=== PATIENT | female | born 1970 | race American Indian/Alaskan Native ===

== ENCOUNTER 2018-07-08 06:03 | Observation (INO) | payer BC ==
[2018-07-05 12:18] LABS: Hematocrit 35.3 % (30.3-42.9); Hemoglobin 11.7 gm/dl (10.1-14.3); Mean Corpuscular HGB Conc 33 % (30-34); Mean Corpuscular Hemoglobin 25 pg (28-32); Mean Corpuscular Volume 77 fl (79-97); Platelet Count 226 K/mm3 (140-440); Red Cell Distribution Width 14.4 % (13.2-15.2)
[2018-07-05 12:29] LABS: BUN/Creatinine Ratio 16; Blood Urea Nitrogen 13 mg/dL (7-17); Calcium 8.9 mg/dL (8.4-10.2); Hemolysis Index 7
[2018-07-05 13:21] LABS: Anisocytosis 1+; Basophils % (Manual) 0 % (0.0-1.8); Eosinophils % (Manual) 0 % (0.0-4.3); Hypochromasia 1+; Total Cells Counted 100
--- NOTE | 2018-07-05 13:22 | Anesthesia Consultation ---
Anesthesia Consult and Med Hx Date of service: 07/05/18 - Airway Anesthetic Teeth Evaluation: Good ROM Head & Neck: Adequate Mental/Hyoid Distance: Adequate Mallampati Class: Class I Intubation Access Assessment: Good - Pulmonary Exam CTA: Yes - Cardiac Exam Cardiac Exam: RRR - Pre-Operative Health Status ASA Pre-Surgery Classification: ASA2 Proposed Anesthetic Plan: General - Pulmonary Hx Smoking: Yes - Central Nervous System Hx Psychiatric Problems: Yes - Other Systems Hx Alcohol Use: Yes (Rarely) Hx Substance Use: Yes (Marijuana daily) Hx Cancer: No
[2018-07-05 13:23] LABS: Platelet Estimate Cons
--- NOTE | 2018-07-05 13:36 | XRay Report ---
ROUTINE CHEST, TWO VIEWS: HISTORY: Smoker, preop. The trachea, heart, mediastinal contour, lung riggins and bony thorax are unremarkable. IMPRESSION: Unremarkable chest x-ray.
--- NOTE | 2018-07-07 22:33 | History and Physical Report ---
History of Present Illness Date of examination: 07/05/18 History of present illness: Patient has been reassessed/reevaluated. H&P has been reviewed. No interval changes. This is a 47 years old female with leiomyomas who presents with complaints of menorrhagia and dysmenorrhea, but denies abnormal pap smears, metrorrhagia, dyspareunia, post-coital bleeding, abnormal periods, pelvic pain, abnormal vaginal discharge, breast mass or lumps, depression, anxiety, urinary symptoms, chest pain, palpitations, shortness of breath, leg swelling, back pain, abdominal pain, headaches and bowel problems. The patient notes that she is sexually active and uses contraception. The patient reports that she has regular menses. The patient notes that she performs self breast exams has no breast concerns. Patient is due for Mammogram and Pap Smear. The patient also presents with menstrual disorder. The symptoms began 3 months ago. She complains of heavy bleeding, dysmenorrhea and cramping, but denies irregular menses, mid-cycle spotting, lack of menses, clotting, history of ovarian cysts, history of thyroid disease, history of PCOS, history of bleeding disorder, lightheadedness and fatigue. Patient reports that for pain she uses ibuprofen. Patient Profile: 47 Years Old Female LMP: 07/01/2018 Height: 63 inches (160.02 cm) Weight: 145 pounds BMI: 25.68 LMP (date): 07/01/2018 Current Method of Contraception: BTL Date of Last Mammogram: 06/29/2018 Date of Last Pap Smear: 05/25/2018 Past History : 3 Term Births: 0 Premature Births: 1 Living Children: 1 Para: 1 Mult. Births: 0 Prev : 1 Aborta: 2 Elect. Ab: 2 Spont. 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 of genital herpes: no Hx of STD: gonorrhea Past Medical History: PTSD Back pain Migraine Past Surgical History: (1992) Left toe Carpal Tunnel Release Tubal Ligation (1993) D&C: Family History Summary: Has Family History Breast Cancer - Entered On: 05/25/2018 Has No Family History of Colon Cancer - Entered On: 05/25/2018 Has Family History of Ovarian Cancer - Entered On: 05/25/2018 Social History: Marital Status: Children: 1 Occupation: Disabled Smoking History: Patient currently smokes every day. Risk Factors: Smoked Tobacco Use: Current every day smoker Smokeless Tobacco Use: Never Passive smoke exposure: no Drug use: yes Alcohol use: yes Exercise: no Seatbelt use: 100 % Mammogram History: Date of Last Mammogram: 06/29/2018 PAP Smear History: Date of Last PAP Smear: 05/25/2018 Review of Systems General Complains of fatigue. Denies fever, chills, sweats, anorexia, weakness, malaise, weight loss and sleep disorder. Complains of menorrhagia, pelvic pain and painful periods. Denies vaginal discharge, incontinence, dysuria, hematuria, amenorrhea, abnormal vaginal bleeding, genital sores, decreased libido, painful sex, urinary urgency, hot flashes, vaginal dryness, vaginal itching and vaginal odor. CV Denies chest pains, palpitations, syncope, dyspnea on exertion, orthopnea, PND and peripheral edema. Resp Denies cough, dyspnea at rest, excessive sputum, hemoptysis, wheezing and pleurisy. GI Denies nausea, vomiting, diarrhea, constipation, change in bowel habits, abdominal pain, melena, hematochezia, jaundice, gas/bloating, indigestion/ heartburn, dysphagia and odynophagia. Breast Denies left breast lump, right breast lump, nipple discharge, bloody discharge from nipple, breast pain, abnormal mammogram and breast enlargement. Psych Denies depression, anxiety, irritability and mood swings. Past History Past Medical History: other (See HPI) Past Surgical History: , Other Social history: other Family history: other Medications and Allergies Allergies Allergy/AdvReac Type Severity Reaction Status Date / Time latex AdvReac Skin Verified 06/29/18 14:10 irritation all antibiotics Allergy Bacterial Uncoded 06/29/18 14:10 infection Home Medications Medication Instructions Recorded Confirmed Last Taken Type Biotin 1 mg PO DAILY 06/29/18 06/29/18 Unknown History Divalproex ER [DepaKOTE ER] 1,500 mg PO HS 06/29/18 06/29/18 Unknown History Ergocalciferol(Vitamin D2)(Nf) 1,000 unit PO DAILY 06/29/18 06/29/18 Unknown History [Vitamin D (Nf)] Quetiapine Fumarate [Seroquel] 100 mg PO HS 06/29/18 06/29/18 Unknown History Active Meds: Active Medications Celecoxib (Celebrex) 200 mg PO PREOP NR Stop: 07/08/18 23:59 Gabapentin (Neurontin) 300 mg PO PREOP NR Stop: 07/08/18 23:59 Lactated Ringer's (Lactated Ringers) 1,000 mls @ 100 mls/hr IV DIRECT JESUS Midazolam HCl (Versed) 2 mg IV PREOP NR Stop: 07/08/18 23:59 Exam - Physical Exam Narrative exam: HEENT: normocephalic, no lesions or deformities Neck/Thyroid: supple, thyroid normal Skin no significant abnormal lesions or rashes Chest: respiratory effort normal, clear to auscultation Breasts: skin/areolae normal, no masses, no nipple discharge, no erythema/warmth /tenderness, and axillae normal. 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 No evidence of cystocele or rectocele. Cervix: No lesions; no cervical motion tenderness Uterus: enlarged uterus 8 - 10 weeks size Adnexae: no masses or tenderness Rectovaginal: exam defered - Constitutional Vitals: Temp Pulse Resp BP Pulse Ox 98.2 F 68 18 124/72 07/05/18 11:55 07/05/18 11:55 07/05/18 11:55 07/05/18 11:55 Results - Labs CBC & Chem 7: 07/05/18 11:59 07/05/18 11:59 Assessment and Plan - Patient Problems (1) Intramural leiomyoma of uterus Current Visit: No Status: Acute Plan to address problem: Diagnosis explained to patient . Questions answered. Discussed with patient various medical, surgical and radiological therapies common for treatment including myomectomy hysterectomy and uterine artery embolization Patient desires definitive treatment Patient desires hysterectomy Discussed risks and benefits of laparotomy, laparoscopy, vaginal and robotic assisted approaches for hysterectomies Patient desires robotic assisted total hysterectomy. Patient desires robotic assisted total hysterectomy. Consent reviewed and signed . The risks and alternatives for this surgery were reviewed with the patient. Discuss the risks of the surgery including infection, bleeding possibly heavy enough to require a blood transfusion, possible damage to bowel, bladder or ureter. Patient understand that this surgery with make her sterile.Patient understands if her ovaries are removed she will become menopausal. Also if unable to complete robitcally a laparotomy may perform (2) Menorrhagia Current Visit: No Status: Acute Qualifiers: Menorrahagia type: with regular cycle Qualified Code(s): N92.0 - Excessive and frequent menstruation with regular cycle Plan to address problem: Secondary to #1 (3) Dysmenorrhea Current Visit: No Status: Acute Plan to address problem: Secondary to#1 (4) Post traumatic stress disorder Current Visit: Yes Status: Chronic (5) Smoker Current Visit: Yes Status: Chronic (6) Migraine Current Visit: Yes Status: Chronic Qualifiers: Migraine type: unspecified
[~2018-07-08 06:03] MED LIST: LACTATED RINGERS 1,000 ML IV SCH; NEURONTIN PO NR; VERSED IV NR
[2018-07-08] MEDS ORDERED: MARCAINE 0.5% INFILTRATI ONE (07:25)
[2018-07-08] MEDS ORDERED: SUBLIMAZE ONE ×2 (07:25→07:49)
[2018-07-08] MEDS ORDERED: DECADRON ONE ×2 (07:26→07:45)
[2018-07-08] MEDS ORDERED: BLOXIVERZ ONE (07:45)
[2018-07-08] MEDS ORDERED: QUELICIN ONE (07:45)
[2018-07-08] MEDS ORDERED: ROBINUL ONE (07:45)
[2018-07-08] MEDS ORDERED: XYLOCAINE MPF 2% ONE (07:45)
[2018-07-08] MEDS ORDERED: ZOFRAN ONE (07:45)
[2018-07-08] MEDS ORDERED: ZEMURON IV ONE (07:45)
[2018-07-08] MEDS ORDERED: DIPRIVAN 10 MG/ML IV ONE (07:49)
[2018-07-08] MEDS ORDERED: NEOSPORIN GU IR ONE (08:17)
[2018-07-08] MEDS ORDERED: ANCEF/STERILE WATER 2 GM/20 ML IV NR (09:00)
[2018-07-08] MEDS ORDERED: NACL 0.9% IR ONE ×2 (09:56)
--- NOTE | 2018-07-08 10:31 | Anesthesia Day of Surgery ---
Anesthesia Day of Surgery - Day of Surgery Patient Examined: Yes Patient H&P Reviewed: Yes Patient is NPO: Yes
[2018-07-08] MEDS ORDERED: TORADOL ONE (10:44)
--- NOTE | 2018-07-08 10:57 | Operative Report ---
Operative Report Operative Report: Date of procedure: 07/08/2018 Pre-operative diagnosis: Symptomatic myomatous Post-operative diagnosis: Same plus pelvic adhesive disease Procedure name(s):Robotic Assisted Total Hysterectomy with bilateral salpingectomy with lysis of adhesions Surgeon: Wayne Snyder MD Steel Wheel Engraver: Yuliya Grady certified industrial hygienist Anesthesia: General EBL: 50 mL Complications: None Findings: Uterus with multiple small myomas approximately 8-10 weeks in size. Patient with omental adhesions to the anterior abdominal wall and thick adhesions between anterior abdominal wall and anterior uterus Specimen(s): Uterus and bilateral fallopian tubes Procedure: Patient was brought to the operating room where general anesthesia was induced without difficulty. Patient was placed in the dorsal lithotomy position. Prepped and draped in the usual sterile manner for robotic procedure. Dominguez catheter was placed without difficulty. Speculum was placed in the vagina. A large V-Care Uterine manipulator was placed without difficulty. Attention was now switched to the patient's abdomen. A vertical supra-umbilicus incision was made with a scalpel. A 10-12 trocar was placed in this incision under direct visualization. Intra-abdominal placement was verified with no evidence of internal organ damage. The patient pelvic findings were noted as above. It was determined that the patient was a candidate for robotic procedure. On both sides the umbilical incision at about 8 cm, incisions were made for robotic trocar. Each robotic trocar was placed under direct visualization with no evidence of internal organ damage. One assistant farm operations manager port were then placed. One 5mm trocar was placed 2 fingerbreadths above the right iliac crest. At this time the patient was placed in extreme Trendelenburg. The da Gordon robot was then docked on the patient's left side. The trocars connected to the robot appropriately. At this time I took my place under the robotic operating reyes. Starting on the patient 's right side the mesosalpinx of the tube were cauterized for mild distal to proximal tube. Bipolar cautery was placed across the proximal portion of the fallopian tube. This area was cauterized and cut the fallopian tube was then removed from the large care team assistant port. Utero-ovarian complex was cauterized and cut. This was followed by cauterizing and cutting the right fallopian tube and right round ligament. The broad ligament was then opened. The bladder flap was formed anteriorly. The posterior broad ligament was then excised. The uterine vessels were skeletonized. The ureter was clearly seen out of the operative field. The bladder was pushed away from the anterior uterus. Attention was then switched to the patient's left side. The same procedure was repeated on the left side with perform the salpingectomy followed by isolating the uterine vessels cauterized and cutting and completing the bladder flap from the left side. At this time the uterus was appearing very cyanotic. After inspecting the bladder flap insured no evidence of bladder injury, the colpotomy was then started. Incision started at 6:00 until the V-Care could be seen. This incision was extended from 6:00 to 9:00. Then from 6:00 to 3:00. Then from 9:00 to 12:00. This incision was extended from 3:00 to 12:00. At this time colpotomy was complete with no evidence of adjacent organ damage. The assistant farm operations manager remove the uterus from through the colpotomy site. The vaginal cuff was irrigated and cauterized and found to be hemostatic. The cuff was closed with roboticly using 0 V- Lock suture. This closure was hemostatic after irrigation and Bovie. All pedicles were inspected and found to be hemostatic. The ureters were identified bilaterally and found to be functioning normal. The patient had clear urine in the Dominguez catheter with no evidence of mixture with blood. Willian was placed on the cuff and pedicles for postoperative hemostasis . All instruments were then removed. The large trocar sites were closed in layers and 4-0 Vicryl. The smaller incisions were closed subcuticularly with 4-0 Vicryl. The patient tolerated procedure well. She was awakened in the operating room and accompanied to the recovery room in good condition.
[2018-07-08] MEDS ORDERED: DEMEROL IV PRN (11:00)
[2018-07-08] MEDS ORDERED: TORADOL IV PRN (11:00)
[2018-07-08] MEDS ORDERED: ZOFRAN IV PRN (11:00)
[2018-07-08] MEDS ORDERED: DILAUDID IV PRN (11:00)
[2018-07-08] MEDS ORDERED: NORCO 5/325 PO PRN (12:37)
[2018-07-08] MEDS ORDERED: HABITROL TD SCH (14:00)
[2018-07-08] MEDS: D5LR 1,000 ML IV SCH ×2 (15:41→23:59)
[2018-07-08] MEDS: TORADOL IV SCH ×2 (16:54→21:52)
--- NOTE | 2018-07-08 16:59 | Post Anesthesia Evaluation ---
- Post Anesthesia Evaluation Patient Participated: Yes Airway Patent: Yes Stable Respiratory Function: Yes Nausea/Vomiting: No Temp > 96.8F: Yes Pain Manageable: Yes Adequeate Hydration: Yes Anesthesia Complications: No
[2018-07-08] MEDS: ANCEF/NS 1 GM/50 ML 1 GM/50 ML BAG IV SCH ×2 (17:39→23:58)
--- NOTE | 2018-07-08 18:01 | Event Note ---
Date: 07/08/18 Day of surgery. Discuss operative findings with patient and questions answered. Patient without fever. Will ambulate in halls this evening. Good urine output. We will continue routine postoperative care.
[2018-07-08] MEDS ORDERED: DIFLUCAN PO ONE (18:03)
[2018-07-08] MEDS ORDERED: COLACE PO SCH (22:00)
[2018-07-09] MEDS: TORADOL IV SCH (03:55)
[2018-07-09 04:29] LABS: Hematocrit 32.7 % (30.3-42.9); Hemoglobin 10.8 gm/dl (10.1-14.3)
--- NOTE | 2018-07-09 08:59 | Short Stay Summary ---
Short Stay Documentation Date of service: 07/09/18 - History H&P: dictated Past Medical History: other (See HPI) Past Surgical History: , Other Social history: other - Allergies and Medications Current Medications: Allergies latex Adverse Reaction (Verified 06/29/18 14:10) Skin irritation Home Medications Medication Instructions Recorded Confirmed Last Taken Type Biotin 1 mg PO DAILY 06/29/18 07/08/18 07/07/18 20:30 History Divalproex ER [DepaKOTE ER] 1,500 mg PO 06/29/18 07/08/18 07/07/18 20:30 History Ergocalciferol(Vitamin D2)(Nf) 1,000 unit PO DAILY 06/29/18 07/08/18 07/07/18 20 :30 History [Vitamin D (Nf)] Quetiapine Fumarate [Seroquel] 100 mg PO 06/29/18 07/08/18 07/07/18 20:30 History Ibuprofen [Motrin 800 MG tab] 800 mg PO Q6H PRN #30 tablet 07/08/18 Unknown Rx oxyCODONE /ACETAMINOPHEN [Percocet 1 - 2 tab PO Q4H PRN #30 tablet 07/08/18 Unknown Rx 5/325 mg] Active Medications Acetaminophen/Hydrocodone Bitart ([place] 5/325) 2 each PO Q4H PRN PRN Reason: Pain, Moderate (4-6) Last Admin: 07/08/18 17:41 Dose: 2 each Divalproex Sodium (Depakote Er) 1,500 mg PO [facility] Last Admin: 07/08/18 21:54 Dose: 1,500 mg Docusate Sodium (Colace) 100 mg PO BID [facility] Last Admin: 07/08/18 22:00 Dose: 100 mg Dextrose/Lactated Ringer's (D5lr) 1,000 mls @ 125 mls/hr IV DIRECT [facility] Last Admin: 07/08/18 23:59 Dose: 125 mls/hr Ketorolac Tromethamine (Toradol) 30 mg IV Q6H [facility] Stop: 07/09/18 13:59 Last Admin: 07/09/18 03:55 Dose: Not Given Nicotine (Habitrol) 14 mg TD Q24H [facility] Last Admin: 07/08/18 17:47 Dose: Not Given Quetiapine Fumarate (Seroquel) 100 mg PO HS [facility] Last Admin: 07/08/18 21:53 Dose: 100 mg - Brief post op/procedure progress note Date of procedure: 07/08/18 (see dictated operative note) - Hospital course Hospital course: Patient was admitted and underwent above procedure without complications. Her post operative course was benign she was afebrile throughout. Patient postoperative hematocrit was in an acceptable range. Patient had no orthostatic symptoms. Patient was tolerating regular diet and voiding without difficulty at time of discharge. Patient incision was healing well without evidence of infection. - Disposition Condition at discharge: Good Disposition: [id number]-01 TO HOME OR SELFCARE - Discharge Diagnoses (1) Intramural leiomyoma of uterus Status: Resolved (2) Menorrhagia Status: Resolved Qualifiers: Menorrahagia type: with regular cycle Qualified Code(s): N92.0 - Excessive and frequent menstruation with regular cycle (3) Dysmenorrhea Status: Resolved (4) Post traumatic stress disorder Status: Chronic (5) Smoker Status: Chronic (6) Migraine Status: Chronic Qualifiers: Migraine type: unspecified Short Stay Discharge Plan Activity: advance as tolerated Diet: regular Wound: open to air Additional Instructions: Patient instructed no heavy lifting for 4 weeks. No intercourse for 8 weeks. Call office for fever, chills, nausea, vomiting or pain not controlled by pain medications. Ambulation is encouraged. Patient's call for heavy vaginal bleeding. Patient instructed to keep her scheduled post operative office appointment. Follow up with: PRIMARY CARE, [Primary Care Provider] - 7 Days Prescriptions: Ibuprofen [Motrin 800 MG tab] 800 mg PO Q6H PRN #30 tablet PRN Reason: Pain oxyCODONE /ACETAMINOPHEN [Percocet 5/325 mg] 1 - 2 tab PO Q4H PRN #30 tablet PRN Reason: Pain, Moderate
[2018-07-09 09:20] VITALS: BP 118/62
== END 2018-07-09 09:55 | disposition home or self-care (01) ==
LOC: OR 06:03 → OB 10:59 → INTOOBSV 10:59
PROVIDERS: ADMIT Obstetrics & Gynecology; ATTEND Obstetrics & Gynecology
DX: D25.1 Intramural leiomyoma of uterus (principal); F43.10 Post-traumatic stress disorder, unspecified; N92.0 Excessive and frequent menstruation with regular cycle; F17.200 Nicotine dependence, unspecified, uncomplicated; N94.6 Dysmenorrhea, unspecified; G43.909 Migraine, unspecified, not intractable, without status migrainosus; Z98.890 Other specified postprocedural states; Z90.710 Acquired absence of both cervix and uterus
CPT/HCPCS: 36415; 58571; 64450; 71046; 80048; 84703; 85007; 85014; 85018; 85025; 86850; 86900; 86901; 88302; 88307; A4217; G0378; J0330; J0690; J0735; J1100; J1885; J2250; J2405; J2704; J2710; J3010; J7120; J7121; S2900; 96365; 96366; 96375; 96376